=== PATIENT | female | born 1995 | race African-American/Black ===

== ENCOUNTER 2017-04-15 23:02 | Emergency (ER) | payer OTHER ==
[~2017-04-15] VITALS: Ht 167.6 cm; Wt 59.0 kg
[~2017-04-15 23:02] MED LIST: IBUPROFEN 600600 M1 PO; NOHOMEMEDICATIONS
[2017-04-16] MEDS ORDERED: MOBIC15 MG PO (00:21)
== END 2017-04-16 00:34 | disposition home or self-care (01) ==
LOC: ER 23:02
DX: S16.1XXA Strain of muscle, fascia and tendon at neck level, initial encounter (principal); V43.92XA Unspecified car occupant injured in collision with other type car in traffic accident, initial encounter; Y93.89 Activity, other specified; Y92.89 Other specified places as the place of occurrence of the external cause; Y99.8 Other external cause status